=== PATIENT | male | born 1975 | race Caucasian/White ===

== ENCOUNTER 2016-10-08 22:00 | Emergency (ER) | payer MEDICAID, OTHER ==
[~2016-10-08] VITALS: Ht 177.8 cm; Wt 100.7 kg
[2016-10-09 03:38] VITALS: BP 138/96
== END 2016-10-09 04:19 | disposition home or self-care (01) ==
LOC: ER 22:00 → EDBD 22:00 → ER 10-09 03:50
DX: T17.228A Food in pharynx causing other injury, initial encounter (principal); R09.89 Other specified symptoms and signs involving the circulatory and respiratory systems; X58.XXXA Exposure to other specified factors, initial encounter; Y93.89 Activity, other specified; Y99.8 Other external cause status; Y92.89 Other specified places as the place of occurrence of the external cause
CPT/HCPCS: 70360

== ENCOUNTER 2018-04-26 22:20 | Emergency (ER) | payer MEDICAID, OTHER ==
[~2018-04-26] VITALS: Ht 185.4 cm; Wt 102.1 kg
[2018-04-27 04:30] VITALS: BP 138/78
== END 2018-04-27 05:02 | disposition home or self-care (01) ==
LOC: ER 22:20
DX: T18.9XXA Foreign body of alimentary tract, part unspecified, initial encounter (principal); X58.XXXA Exposure to other specified factors, initial encounter; Y93.89 Activity, other specified; Y99.8 Other external cause status; Y92.89 Other specified places as the place of occurrence of the external cause
CPT/HCPCS: 70360